=== PATIENT | female | born 1955 | race Caucasian/White ===

== ENCOUNTER 2016-12-27 13:28 | Outpatient (CLI) | payer OTHER ==
--- NOTE | 2016-12-28 13:17 | Mammography Report ---
DIGITAL SCREENING MAMMOGRAM: 12/27/2016 CLINICAL INDICATION: A 61-year-old, for screening. COMPARISON: 06/2013, 03/2012, 08/2009, 05/2008. TECHNIQUE: Routine CC and MLO projections were obtained of the breasts. FINDINGS: The breasts again demonstrate scattered fibroglandular densities bilaterally. Coarse and p unctate, typically benign calcifications are present. Asymmetric parenchyma in the left axillary tail is stable. No suspicious masses, clustered microcalcifications, or regions of architectural distorti on are identified. IMPRESSION: BENIGN FINDINGS. RECOMMENDATION: ROUTINE ANNUAL SCREENING UNLESS OTHERWISE CLINICALLY INDICATED. BIRADS CATEGORY 2-BENIGN FINDINGS. STANDARD QUALIFYING STATEMENTS 1. This examination was reviewed with the aid of Computer-Aided Detection (CAD). 2. A negative or benign imaging report should not delay biopsy if clinically suspicious findings are present. Consider surgical consultation if warranted. More than 5% of cancers are not identified by i maging. 3. Dense breasts may obscure an underlying neoplasm. JOB #: [id number] EXT JOB #:[id number]
== END 2016-12-27 13:29 | disposition home or self-care (01) ==
LOC: DI 13:28
PROVIDERS: ATTEND Internal Medicine
DX: Z12.31 Encounter for screening mammogram for malignant neoplasm of breast (principal)
CPT/HCPCS: 77067

== ENCOUNTER 2019-05-29 10:18 | Outpatient (CLI) | payer MEDICARE ==
--- NOTE | 2019-06-01 14:02 | DEXA Report ---
Reason: SCREENING FOR OSTEOPOROSIS Procedure Date: 05/29/2019 Accession Number: [id number] / [id number] Procedure: DEX - Dexa Spine and/or Hip CPT Code: Final Report FULL RESULT: EXAM: Dexa Spine and/or Hip DATE: 05/29/2019 10:40 AM CLINICAL HISTORY: SCREENING FOR OSTEOPOROSIS TECHNIQUE: Dual energy x-ray absorptiometry (DXA) was performed on a Xooker System. Regions measured are the AP Spine, femoral neck, and if needed forearm. COMPARISON: None. In accordance with the International Society for Clinical Densitometry (ISCD) guidelines, data from previous exams may be reanalyzed using current recommendations and techniques. This is done to allow a more accurate basis for comparison with the current study. FINDINGS: The data for the lumbar spine is as follows: BMD (g/cm/cm) T-SCORE Z-SCORE REGION L1 1.007 -1.0 0.2 L2 1.119 -0.7 0.6 L3 1.150 -0.4 0.8 L4 1.058 -1.2 0.0 TOTAL 1.083 -0.8 0.4 NOTE: All evaluable vertebrae are used for classification The data for the hip is as follows: BMD (g/cm/cm) T-SCORE Z-SCORE REGION Neck 0.929 -0.8 0.4 TOTAL 0.858 -1.2 -0.2 NOTE: The femoral neck or total proximal femur, whichever is lowest, is used for classification. IMPRESSION: THE WHO CLASSIFICATION BASED ON THE INTERNATIONAL REFERENCE STANDARD IS OSTEOPENIA. THE FRACTURE RISK IS INCREASED. RECOMMENDATION: Patients with diagnosis of osteoporosis or osteopenia should have regular bone mineral density assessment. For those eligible for Medicare, routine testing is allowed once every 2 years. Testing frequency can be increased for patients who have rapidly progressing disease or for those who are receiving medical therapy to restore bone mass. COMMENT: World Health Organization (WHO) definitions for osteoporosis and osteopenia: NORMAL BMD: T-score at -1.0 or higher, fracture risk is low OSTEOPENIA BMD: T-score between -1.0 and -2.5, fracture risk is increased. OSTEOPOROSIS BMD: T-score at -2.5 or lower, fracture risk is high. National Osteoporosis Foundation recommends: 1. Obtain adequate dietary calcium (at least 1200 mg per day) and vitamin D (400-800 international units per day). 2. Participate, as appropriate, in regular weightbearing and muscle-strengthening exercise. 3. Avoid tobacco use and reduce alcohol and caffeine intake. 4. For more detailed information see the website at www.NOF.org.
== END 2019-05-29 10:19 | disposition home or self-care (01) ==
LOC: DI 10:18
PROVIDERS: ATTEND Family Medicine
DX: Z13.820 Encounter for screening for osteoporosis (principal); M85.89 Other specified disorders of bone density and structure, multiple sites
CPT/HCPCS: 77080

== ENCOUNTER 2022-01-28 09:34 | Emergency (ER) | payer MEDICARE ==
[2022-01-28 10:31] LABS: BASOPHILS % (AUTO) 0.7 %; EOSINOPHILS # (AUTO) 0.1 10^3/uL (0.0-0.7); EOSINOPHILS % (AUTO) 1.9 %; HCT - HEMATOCRIT 38.3 % (37.0-47.0); HGB - HEMOGLOBIN 12.4 g/dL (12.0-16.0); LYMPHOCYTES # (AUTO) 1.3 10^3/uL (1.5-3.5); LYMPHOCYTES % (AUTO) 29.6 %; MEAN CORPUSCULAR HEMOGLOBIN 29.1 pg (27.0-31.0); MEAN CORPUSCULAR HGB CONC 32.4 g/dL (32.0-36.0); MEAN CORPUSCULAR VOLUME 89.9 fL (81.0-99.0); MEAN PLATELET VOLUME 9.7 fL (7.9-10.8); MONOCYTES # (AUTO) 0.3 10^3/uL (0.0-1.0); MONOCYTES % (AUTO) 7.3 %; NEUTROPHILS # (AUTO) 2.5 10^3/uL (1.5-6.6); NEUTROPHILS % (AUTO) 60.3 %; PLT - PLATELET COUNT 228 10^3/uL (130-450); RED BLOOD COUNT 4.26 10^6/uL (4.20-5.40); RED CELL DISTRIBUTION WIDTH 14.2 % (12.0-15.0); WHITE BLOOD COUNT 4.2 x10^3/uL (4.8-10.8)
[2022-01-28 10:52] LABS: ALBUMIN 3.9 g/dL (3.2-5.5); ALBUMIN/GLOBULIN RATIO 1.1 (1.0-2.2); BILIRUBIN,TOTAL 0.3 mg/dL (0.2-1.0); CALCIUM 9.1 mg/dL (8.5-10.3); CREATININE 0.6 mg/dL (0.4-1.0); POTASSIUM 3.8 mmol/L (3.5-5.0); TOTAL PROTEIN 7.5 g/dL (6.7-8.2)
--- NOTE | 2022-01-28 10:59 | ED Physician Documentation ---
History of Present Illness - Stated complaint Stated Complaint: STROKE SYMP - Chief complaint Chief Complaint: Neuro - History obtained from History obtained from: Patient, Family - History of Present Illness Timing: Today Pain level max: 0 Pain level now: 0 - Additonal information Additional information: Patient is a 66-year-old female who presents to the emergency department stating that she was at home with her today when he witnessed her go unconscious. He states that they were sitting on the couch when he heard her coffee cup dropped to the floor. He looked over and saw her stiffened. He states it took about 30 seconds for her to regain consciousness. Did not notice any shaking. He states that she was confused for a couple of minutes after the event. No loss of bowel or bladder control. No tongue biting. She has never had seizures. She has never had syncope. She takes allergy medication at home. She does not recall anything prior to the event. No headache, no palpitations, no chest pain, no shortness of breath. No recent illness. No trauma. Currently she feels normal. Patient states she has 1 beer per night. She also uses marijuana 2-3 times per month. Denies any other drug use. Review of Systems Ten Systems: 10 systems reviewed and negative Constitutional: denies: Fever, Chills Nose: denies: Rhinorrhea / runny nose, Congestion Respiratory: denies: Cough GI: denies: Abdominal Pain, Nausea, Vomiting, Diarrhea Skin: denies: Rash Musculoskeletal: denies: Neck pain, Back pain Neurologic: denies: Generalized weakness, Focal weakness, Numbness, Headache, Head injury PD PAST MEDICAL HISTORY - Past Medical History Past Medical History: Yes Cardiovascular: None Respiratory: None Neuro: None Endocrine/Autoimmune: None GI: None BLOCK MECHANIC: None : None HEENT: None Psych: Depression Musculoskeletal: None Derm: None - Past Surgical History General: Cholecystectomy Ortho: Other - Present Medications Home Medications: Ambulatory Orders Medication Instructions Recorded Confirmed Cetirizine HCl [Allergy] 10 mg PO DAILY 01/28/22 01/28/22 - Allergies Allergies/Adverse Reactions: Allergies Allergy/AdvReac Type Severity Reaction Status Date / Time No Known Drug Allergies Allergy Verified 01/28/22 09:46 - Social History Does the pt smoke?: No Smoking Status: Former smoker Does the pt drink ETOH?: Yes ETOH Use: Beer Does the pt have substance abuse?: Yes Substance Use and Type: Marijuana - Immunizations Immunizations are current?: Yes PD ED PE NORMAL - Vitals Vital signs reviewed: Yes - General General: Alert and oriented X 3, No acute distress, Well developed/nourished - HEENT HEENT: Atraumatic, PERRL, EOMI, Moist mucous membranes - Neck Neck: Supple, no meningeal sign, No bony TTP - Cardiac Cardiac: RRR, No murmur, Strong equal pulses - Respiratory Respiratory: No respiratory distress, Clear bilaterally - Abdomen Abdomen: Soft, Non tender, Non distended - Derm Derm: Warm and dry - Extremities Extremities: No edema, No calf tenderness / cord - Neuro Neuro: Alert and oriented X 3 - Psych Psych: Normal mood, Normal affect Results - Vitals Vitals: Vital Signs - 24 hr 01/28/22 01/28/22 01/28/22 09:46 10:23 12:44 Temperature 36.4 C L Heart Rate 96 84 88 Respiratory 16 13 20 Rate Blood Pressure 179/87 H 177/92 H 160/97 H O2 Saturation 99 99 99 01/28/22 01/28/22 01/28/22 13:01 13:58 14:22 Temperature Heart Rate 88 81 86 Respiratory 22 14 13 Rate Blood Pressure 169/97 H 150/86 H O2 Saturation 100 100 100 01/28/22 14:58 Temperature Heart Rate 90 Respiratory 17 Rate Blood Pressure 167/80 H O2 Saturation 97 Oxygen O2 Source Room air - EKG (time done) 1036 Rate: Rate (enter#) (91) Rhythm: NSR Coin: Normal Intervals: Normal DC QRS: Normal Ischemia: Normal ST segments, Q waves (v1-2) - Labs Labs: Laboratory Tests 01/28/22 01/28/22 01/28/22 10:17 10:17 10:17 WBC 4.2 L RBC 4.26 Hgb 12.4 Hct 38.3 MCV 89.9 MCH 29.1 MCHC 32.4 RDW 14.2 Plt Count 228 MPV 9.7 Neut # (Auto) 2.5 Lymph # (Auto) 1.3 L [place] # (Auto) 0.3 Eos # (Auto) 0.1 Baso # (Auto) 0.0 Absolute Nucleated RBC 0.00 Nucleated RBC % 0.0 Sodium 135 Potassium 3.8 Chloride 100 L Carbon Dioxide 27 Anion Gap 8.0 BUN 16 Creatinine 0.6 Estimated GFR (MDRD) 100 Glucose 149 H Calcium 9.1 Total Bilirubin 0.3 AST 21 ALT 21 Alkaline Phosphatase 79 Troponin I High Sens 2.6 Total Protein 7.5 Albumin 3.9 Globulin 3.6 Albumin/Globulin Ratio 1.1 Lipase 27 SARS-CoV-2 (PCR) 01/28/22 12:38 WBC RBC Hgb Hct MCV MCH MCHC RDW Plt Count MPV Neut # (Auto) Lymph # (Auto) [place] # (Auto) Eos # (Auto) Baso # (Auto) Absolute Nucleated RBC Nucleated RBC % Sodium Potassium Chloride Carbon Dioxide Anion Gap BUN Creatinine Estimated GFR (MDRD) Glucose Calcium Total Bilirubin AST ALT Alkaline Phosphatase Troponin I High Sens Total Protein Albumin Globulin Albumin/Globulin Ratio Lipase SARS-CoV-2 (PCR) NOT DETECTED - Rads (name of study) head CT Radiology: Final report received, EMP read contemporaneously, See rad report (no acute abnormality) PD MEDICAL DECISION MAKING - ED course Complexity details: reviewed results, re-evaluated patient, considered differential (No ST elevation LA, no aortic dissection, no PE, no tension pneumothorax, no aortic aneurysm), d/w patient, d/w family, d/w national sales consultant ED course: 66-year-old female with a seizure versus syncope without prodrome. No history of either. CT head does not show any acute abnormalities. EKG does not show any acute abnormalities. No arrhythmia on telemetry. No significant lab abnormalities. We will place in observation for telemetry monitoring. She may benefit from a brain MRI as well. Discussed the case with Dr. Valles, hospitalist who accepts This document was made in part using voice recognition software. While efforts are made to proofread this document, sound alike and grammatical errors may occur. While the patient was waiting for placement in observation. She had a sinus pause that lasted approximately 3-1/2 seconds. She was symptomatic with this, felt lightheaded and dizzy similar to how she felt this morning she states. Discussed the case with Dr. Valles, hospitalist who is also a sorting grapple operator, she recommends transfer for pacemaker. We will attempt to transfer the patient. External pacer pads were placed on the patient. Departure - Departure Disposition: 02 Transfer Acute Care Hosp Clinical Impression: Symptomatic bradycardia, Sinus pause Syncope Qualifiers: Syncope type: unspecified Qualified Code(s): R55 - Syncope and collapse Condition: Stable NIHSS - Time Time: 10:27 - Level of Consciousness Level of consciousness: (0) Alert, Keenly responsive LOC Questions: (0) Answers both Q's correct LOC Commands: (0) Performs both correctly - Gaze Best Gaze: (0) Normal - Visual Visual: (0) No loss - Facial Palsy Facial Palsy: (0) Normal, symmetrical movement - Motor Arms (both separate) Motor Arm (right): (0) No drift Motor Arm (left): (0) No drift - Motor Legs (both separate) Motor Leg (right): (0) No drift Motor Leg (left): (0) No drift - Limb Ataxia Limb Ataxia: (0) Absent - Sensory Sensory: (0) Normal - Best Language Best Language: (0) No aphasia - Dysarthria Dysarthria: (0) Normal - Extinction and Inattention (formally neg Extinction and inattention: (0) No abnormality - Total Score/Results Total Score/Result: 0
--- NOTE | 2022-01-28 11:14 | CT Report ---
PROCEDURE: HEAD WO INDICATIONS: syncope vs new seizure TECHNIQUE: Noncontrast 4.5 mm thick angled axial sections acquired from the foramen magnum to the vertex. For r adiation dose reduction, the following was used: automated exposure control, adjustment of mA and/or kV according to patient size. COMPARISON: None. FINDINGS: Image quality: Excellent. CSF spaces: Basal cisterns are patent. No extra-axial fluid collections. Ventricles are normal in size and shape. Brain: No midline shift. No intracranial masses or hemorrhage. Holliday-white matter interface is norm al. Skull and face: Calvarium and visualized facial bones are intact, without suspicious lesions. Sinuses: Visualized sinuses and mastoids are clear. IMPRESSION: 1. No acute intracranial process. Reviewed by: Sarah Vargas MD on 01/28/2022 11:13 AM PDT Approved by: Sarah Vargas MD on 01/28/2022 11:13 AM PDT Station ID: [id number]
--- NOTE | 2022-01-28 12:32 | XRAY Report ---
PROCEDURE: Chest 1 View X-Ray INDICATIONS: syncope TECHNIQUE: One view of the chest was acquired. COMPARISON: None FINDINGS: Surgical changes and devices: None. Lungs and pleura: No pleural effusions or pneumothorax. Lungs are clear. Mediastinum: Mediastinal contours appear normal. Heart size is normal. Bones and chest wall: No suspicious bony lesions. Overlying soft tissues appear unremarkable. IMPRESSION: No acute pulmonary process. Reviewed by: Sarah Vargas MD on 01/28/2022 12:30 PM PDT Approved by: Sarah Vargas MD on 01/28/2022 12:30 PM PDT Station ID: [id number]
[2022-01-29 18:51] LABS: THYROID STIMULATING HORMONE 1.73 uIU/mL (0.34-5.60)
[2022-01-29 18:53] LABS: FREE T4 (FREE THYROXINE) 0.8 ng/dL (0.58-1.64)
--- NOTE | 2022-01-29 22:06 | ED Physician Documentation ---
ED Addendum - Addendum Addendum: Patient is continuing to await bed placement. All beds in the region are currently full. She is on several waiting lists. I did speak with [facility], Dr. Conteh, cardiology at 1730 today. He recommends transfer for further investigation and care of the patient. Talk to Dr. Quan, hospitalist who graciously accepts in transfer. COBRA forms completed. [facility] is unsure if they will have a bed tonight or tomorrow. The patient will continue to be monitored in the emergency department. Patient signed out to the oncoming emergency department physician. Patient is asymptomatic currently.
--- NOTE | 2022-01-30 08:36 | ED Physician Documentation ---
ED Addendum - Addendum Addendum: 01/30/22 08:36 66-year-old woman boarding in the emergency department for syncope and sinus pause. Took call from Dr. Ramirez, provider enrollment specialist at [facility]. Their cable operator is on vacation and cannot accommodate this young lady. 01/30/22 11:21 Subsequently was she was excepted by Dr. Kaminski to [facility], cobras are completed and she is stable for transport. I do not think she has had a pause since Saturday. Disposition: Transferred to [facility] for cardiology care Condition: Stable but guarded, she will be transported with pacer pads Diagnosis: 1. Sinus pause 2. Syncope
[2022-01-30 10:49] VITALS: BP 131/72
== END 2022-01-30 11:45 | disposition short-term general hospital (02) ==
LOC: ED 09:34
DX: R55 Syncope and collapse (principal); R00.1 Bradycardia, unspecified; I45.5 Other specified heart block; Z87.891 Personal history of nicotine dependence; Z20.822 Contact with and (suspected) exposure to COVID-19
CPT/HCPCS: 36415; 80053; 83690; 84439; 84443; 84484; 85025; 92953; 93005; 99283; 99285

== ENCOUNTER 2022-01-30 11:58 | Outpatient (CLI) | payer MEDICARE | END 2022-01-30 11:59 | disposition short-term general hospital (02) | LOC: EMS 11:58 | DX: R00.1 Bradycardia, unspecified (principal); R55 Syncope and collapse | CPT/HCPCS: A0425; A0428 ==